=== PATIENT | female | born 1950 | race Caucasian/White ===

== ENCOUNTER 2023-08-14 08:17 | Observation (INO) ==
--- NOTE | 2023-07-20 13:03 | PAT Medication Instructions ---
Medication Instructions Date of Service July 20, 2023 Home Medications acetaminophen 500 mg capsule 1,000 mg PO Q6H PRN albuterol sulfate 90 mcg/actuation aerosol inhaler 2 inh inhalation QID PRN amoxicillin 500 mg capsule 2,000 mg PO UD PRN ascorbate calcium (vitamin C) 500 mg tablet 500 mg PO DAILY azelastine 137 mcg (0.1 %) nasal spray aerosol 2 spray intranasal BID calcium carbonate 500 mg-vitamin D3 10 mcg (400 unit) tablet (Calcium 500 + D) 1 tab PO DAILY cholecalciferol (vitamin D3) 25 mcg (1,000 unit) capsule (Vitamin D3) 25 mcg PO DAILY doxycycline monohydrate 50 mg capsule 50 mg PO QAM estradiol 10 mcg vaginal tablet 10 mcg vaginal Q7D fluticasone propionate 110 mcg/actuation HFA aerosol inhaler 1 puff inhalation BID fluticasone propionate 50 mcg/actuation nasal spray,suspension 1 - 2 spray intranasal DAILY ibuprofen 200 mg tablet 200 mg PO Q6H PRN metronidazole 0.75 % topical cream (MetroCream) 1 applic topical DAILY PRN omeprazole 20 mg tablet,delayed release 20 mg PO HS pravastatin 40 mg tablet 40 mg PO HS terconazole 0.8 % vaginal cream 1 appful vaginal HS PRN valacyclovir 500 mg tablet (Valtrex) 500 mg PO DAILY PRN Continue as directed amoxicillin 500 mg capsule 2,000 mg PO UD PRN(if needed) valacyclovir 500 mg tablet (Valtrex) 500 mg PO DAILY PRN(if needed) fluticasone propionate 50 mcg/actuation nasal spray,suspension 1 - 2 spray intranasal DAILY ASK your surgeon for instructions ibuprofen 200 mg tablet 200 mg PO Q6H PRN STOP taking 24 hours before surgery estradiol 10 mcg vaginal tablet 10 mcg vaginal Q7D metronidazole 0.75 % topical cream (MetroCream) 1 applic topical DAILY PRN terconazole 0.8 % vaginal cream 1 appful vaginal HS PRN DO NOT take the morning of surgery ascorbate calcium (vitamin C) 500 mg tablet 500 mg PO DAILY calcium carbonate 500 mg-vitamin D3 10 mcg (400 unit) tablet (Calcium 500 + D) 1 tab PO DAILY cholecalciferol (vitamin D3) 25 mcg (1,000 unit) capsule (Vitamin D3) 25 mcg PO DAILY Take morning of surgery With a small sip of water, OTHERWISE NOTHING TO EAT OR DRINK AFTER MIDNIGHT: acetaminophen 500 mg capsule 1,000 mg PO Q6H PRN(if needed) albuterol sulfate 90 mcg/actuation aerosol inhaler 2 inh inhalation QID PRN(use if needed; please bring with you to hospital day of surgery if possible) azelastine 137 mcg (0.1 %) nasal spray aerosol 2 spray intranasal BID doxycycline monohydrate 50 mg capsule 50 mg PO QAM fluticasone propionate 110 mcg/actuation HFA aerosol inhaler 1 puff inhalation BID Take evening before surgery acetaminophen 500 mg capsule 1,000 mg PO Q6H PRN(if needed) albuterol sulfate 90 mcg/actuation aerosol inhaler 2 inh inhalation QID PRN(if needed) azelastine 137 mcg (0.1 %) nasal spray aerosol 2 spray intranasal BID fluticasone propionate 110 mcg/actuation HFA aerosol inhaler 1 puff inhalation BID omeprazole 20 mg tablet,delayed release 20 mg PO HS pravastatin 40 mg tablet 40 mg PO HS Other Notes If you have any questions please call us at [phone] or [phone] or [phone] or [phone]
--- NOTE | 2023-07-23 11:10 | Anesthesiology Consultation ---
Date of Service July 23, 2023 Assessment & Plan (1) Encounter for pre-operative examination: - Infectious disease screening: Per assessment on 07/23/23: No known infectious disease contacts or current infectious disease symptoms. No noted recent Covid positive test result. - Outpatient joint assessment: Pt currently scheduled for inpatient pathway. If surgeon requests review for outpatient joint pathway, patient is an acceptable candidate for outpatient joint program from anesthesia standpoint pending surgeon's office assessment that patient is motivated, has good support and completes Same Day Joint Program preop requirements. - Right hip revision (07/26/15): SAB at L3-4 x1 attempt at [facility] Chart Review Chart Review: Acceptable Risk for Surgery and Patient seen in Pre Admission Testing Teaching & Discussion Pre-Anesthesia Teaching/Discussion Notes: Instructed NPO after midnight before surgery,except medications with 15 cc of water. Medication instructions provided according to the PAT guidelines. History Surgery Operation Date: 08/14/23 12:00 Proposed Procedures p Right Total Knee Arthroplasty - Attila Brunson, Height/Weight Height: 5 ft 6.5 in Weight: 77.4 kg Allergies Allergy/AdvReac Type Severity Reaction Status Date / Time rivaroxaban [From Xarelto] Allergy Itching Verified 07/23/23 11:45 morphine AdvReac Intermediate Nausea Verified 07/20/23 11:02 Medications Home Medications Medication Instructions Recorded Confirmed Last Taken acetaminophen 500 mg capsule 1,000 mg PO Q6H PRN Pain 07/20/23 07/20/23 Unknown albuterol sulfate 90 mcg/actuation 2 inh inhalation QID PRN Shortness 07/20/23 07/20/23 Unknown aerosol inhaler Of Breath amoxicillin 500 mg capsule 2,000 mg PO UD PRN dental 07/20/23 07/20/23 Unknown procedures ascorbate calcium (vitamin C) 500 500 mg PO DAILY 07/20/23 07/20/23 Unknown mg tablet azelastine 137 mcg (0.1 %) nasal 2 spray intranasal BID 07/20/23 07/20/23 Unknown spray aerosol calcium carbonate 500 mg-vitamin 1 tab PO DAILY 07/20/23 07/20/23 Unknown D3 10 mcg (400 unit) tablet (Calcium 500 + D) cholecalciferol (vitamin D3) 25 25 mcg PO DAILY 07/20/23 07/20/23 Unknown mcg (1,000 unit) capsule (Vitamin D3) doxycycline monohydrate 50 mg 50 mg PO QAM rosacea 07/20/23 07/20/23 Unknown capsule estradiol 10 mcg vaginal tablet 10 mcg vaginal Q7D 07/20/23 07/20/23 Unknown fluticasone propionate 110 1 puff inhalation BID 07/20/23 07/20/23 Unknown mcg/actuation HFA aerosol inhaler fluticasone propionate 50 1 - 2 spray intranasal DAILY 07/20/23 07/20/23 Unknown mcg/actuation nasal spray,suspension ibuprofen 200 mg tablet 200 mg PO Q6H PRN Pain 07/20/23 07/20/23 Unknown metronidazole 0.75 % topical cream 1 applic topical DAILY PRN rosacea 07/20/23 07/20/23 Unknown (MetroCream) omeprazole 20 mg tablet,delayed 20 mg PO HS 07/20/23 07/20/23 Unknown release pravastatin 40 mg tablet 40 mg PO HS 07/20/23 07/20/23 Unknown terconazole 0.8 % vaginal cream 1 appful vaginal HS PRN yeast 07/20/23 07/20/23 Unknown infections valacyclovir 500 mg tablet 500 mg PO DAILY PRN Cold Sores 07/20/23 07/20/23 U nknown (Valtrex) Past Medical History Medical History Allergic rhinitis Asthma GERD (gastroesophageal reflux disease) Hyperlipidemia Osteoarthritis Rosacea Exercise / Class Metabolic Activity II 4-5 Yardwork/Stairs/Walk up hill (one FS: no CP, no SOB) Past Surgical History Surgical History History of anesthesia reaction Memory changes following hip surgery 2004 Blood pressure "bottomed out" following spinal with previous surgery (~2012), no similar BP issues with subsequent surgeries/spinal anesthesia History of ankle surgery left ankle revision (2006) History of lumbar fusion 2013 History of revision of total hip arthroplasty Right hip revision (07/26/15): SAB at L3-4 x1 attempt at [facility] History of total left hip arthroplasty History of total right hip arthroplasty 2015 Hx of ankle fusion left (2004) Hx of colonoscopy Hx of laparoscopy (r/t abdominal pain) Hx of tonsillectomy 89 Hx of wisdom tooth extraction age 23 Past Anesthesia History No Family Hx of Anesthesia Complications and Other * Memory changes following hip surgery 2004 * Blood pressure "bottomed out" following spinal with previous surgery (~2012), no similar BP issues with subsequent surgeries/spinal anesthesia History of PONV No Hx of PONV and Hx of Motion Sickness (Vertigo- remote hx, no recent issues) Social History Smoking Status: Former smoker Do You Dip or Chew Tobacco: No Smoking End Date: Age [age] Hx Alcohol Use: Yes Alcohol type: wine alcohol intake frequency: holidays/special occasions only (1 glass/year) substance use type: marijuana (Only during college) Review of Systems Patient denies chest pain, shortness of breath, dyspnea on exertion, fever, chills, cough, wheezing, palpitations. Physical Exam Vital Signs VITALS BP 143/92 P 74 TEMP 98.1 SP02 99%RA RESP 18 PHYSICAL Full cervical extension range of motion. Full TMJ range of motion. TMD 3 finger breaths Mallampati Score 2 Dentition: intact, several crowns Lungs: clear throughout to auscultation Cardiac: regular rate and rhythm, no murmurs noted Spine: normal Carotid arteries: negative bruit Extremities: no LE edema Lab Results Anesthesia Preop Results Results Anesthesia Widget: WBC 5.70 K/ul (4.8-10.8) 07/23/23 Hgb 13.6 g/dl (12.0-16.0) 07/23/23 Hct 40.7 % (37.0-47.0) 07/23/23 Plt 182 K/uL (130-400) 07/23/23 PT 10.7 Seconds (9.0-12.0) 07/23/23 PTT 26 Seconds (21-31) 07/23/23 INR 1.0 (0.9-1.1) 07/23/23 Blood Type A Positive 07/23/23 Antibody Screen NEGATIVE 07/23/23 Testing Laboratory Results 06/24/23 SODIUM 141 POTASSIUM 4.2 CHLORIDE 103 CO2 28 BUN 17 CREATININE 0.9 GLUCOSE 105 HGBA1C 5.6% Electrocardiogram Date: 07/23/23 NSR at 70bpm. "Normal ECG" Chest X-Ray Date: 07/23/23 FINDINGS: PA and lateral chest radiographs are compared to study dated 07/09/2015. The heart is mildly top normal for projection noting atherosclerotic calcification of the thoracic aorta. There is minimal bibasilar atelectasis. The lungs and pleural spaces are otherwise clear. There is no pneumothorax. The skeletal structures are osteopenic. The bony thorax appears intact. IMPRESSION: No active disease in the chest.
--- NOTE | 2023-08-12 07:57 | History & Physical Report ---
Date of Service August 12, 2023 Assessment & Plan (1) Osteoarthritis of right knee: We will proceed with a right total knee arthroplasty. Postoperatively she will be started on aspirin for DVT prophylaxis and kept overnight in the hospital for postop medical management. She plans to use energy physical therapy upon discharge. History of Present Illness Chief Complaint: Osteoarthritis of the right knee. Primary Care Provider: Kathie Novak Hermelindo Myers is a pleasant 73-year-old female who has been dealing with chronic increasing right knee pain. It has been going on for years. She has received injections and therapy in the past by other providers. She is having an increasing deformity of the knee. X-rays and clinical examination been diagnostic for advanced osteoarthritis of the right knee. After failing conservative treatment, she has elected to proceed with a right total knee arthroplasty. Allergies Allergy/AdvReac Type Severity Reaction Status Date / Time rivaroxaban [From Xarelto] Allergy Itching Verified 07/23/23 11:45 morphine AdvReac Intermediate Nausea Verified 07/20/23 11:02 Home Medications Medication Instructions Recorded Confirmed Type acetaminophen 500 mg capsule 1,000 mg PO Q6H PRN Pain 07/20/23 07/20/23 History albuterol sulfate 90 mcg/actuation 2 inh inhalation QID PRN Shortness 07/20/23 07/20/23 History aerosol inhaler Of Breath amoxicillin 500 mg capsule 2,000 mg PO UD PRN dental 07/20/23 07/20/23 History procedures ascorbate calcium (vitamin C) 500 500 mg PO DAILY 07/20/23 07/20/23 History mg tablet azelastine 137 mcg (0.1 %) nasal 2 spray intranasal BID 07/20/23 07/20/23 History spray aerosol calcium carbonate 500 mg-vitamin 1 tab PO DAILY 07/20/23 07/20/23 History D3 10 mcg (400 unit) tablet (Calcium 500 + D) cholecalciferol (vitamin D3) 25 25 mcg PO DAILY 07/20/23 07/20/23 History mcg (1,000 unit) capsule (Vitamin D3) doxycycline monohydrate 50 mg 50 mg PO QAM rosacea 07/20/23 07/20/23 History capsule estradiol 10 mcg vaginal tablet 10 mcg vaginal Q7D 07/20/23 07/20/23 History fluticasone propionate 110 1 puff inhalation BID 07/20/23 07/20/23 History mcg/actuation HFA aerosol inhaler fluticasone propionate 50 1 - 2 spray intranasal DAILY 07/20/23 07/20/23 History mcg/actuation nasal spray,suspension ibuprofen 200 mg tablet 200 mg PO Q6H PRN Pain 07/20/23 07/20/23 History metronidazole 0.75 % topical cream 1 applic topical DAILY PRN rosacea 07/20/23 07/20/23 History (MetroCream) omeprazole 20 mg tablet,delayed 20 mg PO HS 07/20/23 07/20/23 History release pravastatin 40 mg tablet 40 mg PO HS 07/20/23 07/20/23 History terconazole 0.8 % vaginal cream 1 appful vaginal HS PRN yeast 07/20/23 07/20/23 History infections valacyclovir 500 mg tablet 500 mg PO DAILY PRN Cold Sores 07/20/23 07/20/23 History (Valtrex) Past Med/Surg History Medical History Osteoarthritis Allergic rhinitis Asthma Rosacea GERD (gastroesophageal reflux disease) Hyperlipidemia Surgical History History of anesthesia reaction Memory changes following hip surgery 2004 Blood pressure "bottomed out" following spinal with previous surgery (~2012), no similar BP issues with subsequent surgeries/spinal anesthesia History of revision of total hip arthroplasty Right hip revision (07/26/15): SAB at L3-4 x1 attempt at [facility] History of total right hip arthroplasty 2014 History of lumbar fusion 2013 History of total left hip arthroplasty History of ankle surgery left ankle revision (2006) Hx of ankle fusion left (2004) Hx of wisdom tooth extraction age 23 Hx of tonsillectomy 1956 Hx of laparoscopy (r/t abdominal pain) Hx of colonoscopy Social History Smoking Status: Former smoker Tobacco Type: Cigarettes Smoking End Date: Age [age]; Second Hand Exposure: No; Do You Dip or Chew Tobacco: No; Tobacco Cessation Education Requested by Patient: No Hx Alcohol Use: Yes Alcohol type: wine Preferred Language: Polish Communication Ability: Effective 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 Physical Exam On physical examination of the right knee, she has a slight valgus deformity. She has tenderness palpation of the distal lateral femoral condyle and over the lateral joint line.. Constitutional WD/WN, vitals as above Eyes PERRL, conjunctivae normal, anicteric sclerae ENMT external ear and nose normal, oropharynx normal Neck trachea midline, no thyromegaly Respiratory normal respiratory effort Cardiovascular RRR, no murmur, no edema Gastrointestinal (Abdomen) normal bowel sounds, soft, nontender, no hepatosplenomegaly Psychiatric A+Ox3, euthymic affect Results & Data Results & Data Laboratory Results . Diagnostic Findings X-rays of the right knee show advanced osteoarthritis with joint space narrowing, osteophyte formation, and [id number] articulation.. PG Care Time/CCT Total # of Minutes Spent Total Time Spent with Patient: Total time spent is greater than 50% in coordination of care (as documented) at patient's floor/unit and/or counseling patient: Coding Level of Care Code None Diagnoses Osteoarthritis of right knee M17.11
[~2023-08-14 08:17] MED LIST: BUPIVACAINE 0.5 % 5 MG/1 ML PF 10ML VIAL ONE; DEXAMETHASONE SOD INJ 4 MG/ML VIAL ONE; ROPIVACAINE 0.5% 5 MG/ML 30 ML VIAL ONE
[2023-08-14] MEDS: LR 500ML BOLUS, THEN 15ML/HR IV SCH (09:07)
[2023-08-14] MEDS: dexAMETHasone**PF** 10 MG/ML VIAL IV SCH (09:08)
[2023-08-14] MEDS: LR 60ML/HR IV SCH (09:08)
[2023-08-14] MEDS: GABAPENTIN 300 MG CAP PO SCH (09:09)
[2023-08-14] MEDS: ACETAMINOPHEN 500 MG TAB PO SCH ×2 (09:09→14:35)
[2023-08-14] MEDS: FAMOTIDINE 20 MG TAB PO SCH (09:09)
[2023-08-14] MEDS ORDERED: MIDAZOLAM HCL 1 MG/ML 2ML VIAL ONE (09:17)
[2023-08-14] MEDS ORDERED: ATROPINE SULFATE 0.1 MG/ML 10ML SYR IV PRN (09:38)
[2023-08-14] MEDS ORDERED: ePHEDrine sulfate 50 MG/ML AMP IV PRN (09:38)
[2023-08-14] MEDS ORDERED: HYDROmorphone INJ 1 MG/ML SYRINGE IV PRN (09:38)
[2023-08-14] MEDS ORDERED: PROMETHAZINE HCL 6.25 MG in SODIUM CHLORIDE 0.9% 50 ML IV PRN (09:38)
[2023-08-14] MEDS ORDERED: PROPOFOL IV EMULSION 10 MG/ML 20 ML VIAL IV ONE (10:09)
[2023-08-14] MEDS: TRANEXAMIC ACID 1,000 MG **IV Pre-op IV SCH (10:14)
[2023-08-14] MEDS: ceFAZolin 2000MG 2,000 MG/15 ML SYR IV SCH (10:29)
[2023-08-14] MEDS: ROPIV 0.5% 246mg, Ketorolac 30mg, EPINEPHrine 0.5mg in NSS INFIL SCH (10:58)
[2023-08-14] MEDS ORDERED: ePHEDrine sulfate 50 MG/5 ML SYR ONE (11:17)
[2023-08-14] MEDS: TRANEXAMIC ACID 1,000 MG **IV Intra-op IV SCH (11:25)
--- NOTE | 2023-08-14 11:32 | Operative Report ---
PG Post Operative Report Pre & Post Diagnosis Operation Date: 08/14/23 10:00 Pre-Op Diagnosis: DJD Knee Right Post-Op Diagnosis: DJD Knee Right I identified the patient and participated in the time-out.: Yes Procedure Operation Date: 08/14/23 10:00 Actual Procedures p Right Total Knee Arthroplasty(Right) - Attila Brunson DO Surgeon Attila Brunson DO Professor Of Religious Studies Attila Padron PA-C Estimated Blood Loss 30 Findings Consistent with Post-Op Diagnosis Specimens Right femoral and tibial bone Description of Procedure Implants used: I used a Natasha Persona total knee arthroplasty system with a size 8 standard PS femur, E tibia, 31 oval patella, and a size 12 CPS polyethylene bearing. All components were cemented in place with Biomet cement. Lucia arrived [facility] for the above procedure. She was seen in the preoperative holding area and the operative extremity was identified and signed. She was given a preoperative antibiotic, TXA, a spinal anesthetic and an adductor nerve block. She was taken back to the operating room and laid on the table in supine position. She was given basic sedation. The operative knee was then prepped and draped in sterile fashion. A timeout was done, and the patient and the operative extremity was properly identified. A midline incision was made directly over the patella. Dissection was taken down to the extensor mechanism. A medial parapatellar arthrotomy was used. The medial retinaculum was released and the fat pad was mostly excised. The knee was flexed and the ACL, PCL, and meniscus were removed. A drill was sent down the center of the femoral canal followed by an intramedullary latonia. Off that latonia a distal femoral cutting block was placed. 9 mm was resected off the distal femur at 5 of valgus. A posterior referencing AP sizing guide was then placed on the distal femur. The femur measured to be a size 8. 2 drill holes were placed in 3 of external rotation. A 4-in-1 cutting block was then impacted into place. Anterior, posterior, and chamfer cuts were then made. The proximal tibia was then exposed. An external tibial alignment guide was placed. A tibial cut guide was then anchored in place and the proximal tibia was then resected. The posterior aspect of the knee was then opened up and any additional meniscus fragments and osteophytes were removed. The tibia measured to be a size E. The tibial plate was then placed in the appropriate rotation and the tibia was drilled and punched. Trial components were then placed. I used a size 12 CPS polyethylene insert. The knee was brought through a full range of motion and felt to be stable. The peg holes for the femoral component were then drilled. The patella was then everted and 9 mm was resected off the posterior aspect of the patella. The patella measured to be a size 31 oval. 3 peg holes were then drilled. A trial patella was placed. The knee was once again brought through a full range of motion and felt to be stable. Trial components were then removed. The surrounding soft tissues were injected with 100 cc of an orthopedic pain control cocktail. All components were then cemented into place with Biomet cement. The final polyethylene insert was then snapped into place. Once cement was dry the tourniquet was deflated. Hemostasis was obtained. A dilute betadyne lavage was then done for 3 minutes. The joint was then irrigated with normal saline solution. The medial parapatellar arthrotomy was then closed with #1 Vicryl suture. The skin was closed with 2-0 Vicryl, 3-0V lock suture, and sobeida. A soft compressive dressing was placed. She was then transferred to a hospital bed and taken to the postanesthesia care unit in stable condition. She tolerated the procedure well. Nilesh Tejada PA-C, was present for the entire procedure. He was critical for patient positioning, prepping, draping, retraction exposure, wound closure and application of sterile dressing. I attest to the content of the Intraoperative Record and any orders documented therein. Any exceptions are noted below.
--- NOTE | 2023-08-14 12:52 | XRay Report ---
TWO VIEWS RIGHT KNEE CLINICAL HISTORY: Postoperative examination. FINDINGS: AP and crosstable lateral portable views of the right knee are obtained. A right knee arthr oplasty is in near anatomic alignment. There has been undersurface remodeling of the patella. No acut e fracture is seen. There are expected postoperative changes around the knee including skin clips, so ft tissue edema, and subcutaneous gas. IMPRESSION: Expected postoperative changes status post right knee arthroplasty. No acute fracture is seen. ACT 112: Negative or not required by law. Electronically signed by: Bharathi Frye M.D. 08/14/2023 12:50 PM
--- NOTE | 2023-08-14 13:19 | Anesthesiology Progress Note ---
Date of Service August 14, 2023 Anesthesia Post Procedure Vital Signs Vital Signs: Temp Pulse Pulse Resp BP Pulse Ox O2 Del Method 08/14/23 13:15 36.3 C L 77 16 152/83 H 100 Room Air 08/14/23 12:50 36.2 C L 80 17 125/79 100 Room Air 08/14/23 12:40 84 15 134/85 100 Room Air 08/14/23 12:30 86 12 136/79 100 Room Air 08/14/23 12:20 83 19 128/78 100 Oxymask 08/14/23 12:10 85 12 124/75 100 Oxymask 08/14/23 12:00 93 H 14 124/68 100 Oxymask 08/14/23 11:53 36.2 C L 99 H 20 112/65 100 Oxymask 08/14/23 08:57 37 C 80 20 157/94 H 99 Room Air O2 Flow Rate 08/14/23 13:15 08/14/23 12:50 08/14/23 12:40 08/14/23 12:30 08/14/23 12:20 1 08/14/23 12:10 3 08/14/23 12:00 5 08/14/23 11:53 10 08/14/23 08:57 Transfer of Care Handoff Completed per policy Notes Mental Status: alert / awake / arousable and participated in evaluation Nausea / Vomiting: adequately controlled Pain: adequately controlled Airway Patency, RR, SpO2: stable & adequate BP & HR: stable & adequate Hydration State: stable & adequate Neuraxial Anesthesia: was administered and sensory block is resolving Anesthetic Complications: no major complications apparent and Pt Satisfied with anesthetic care
[2023-08-14] MEDS ORDERED: ONDANSETRON INJ 2 MG/ML 2 ML VIAL IV PRN (13:21)
[2023-08-14] MEDS ORDERED: traMADol HCL 50 MG TABLET PO PRN (13:21)
[2023-08-14] MEDS ORDERED: MAGNESIUM HYDROXIDE SUSP 30 ML UDC PO PRN (13:21)
[2023-08-14] MEDS ORDERED: NALOXONE HCL 0.4 MG/1 ML VIAL/CARP IV PRN (13:21)
[2023-08-14] MEDS ORDERED: bisacodyL 10 MG SUPP PR PRN (13:21)
[2023-08-14] MEDS ORDERED: METOCLOPRAMIDE HCL INJ 5 MG/ML 2 ML VIAL IV PRN (13:21)
[2023-08-14] MEDS ORDERED: HYDROmorphone INJ 0.5 MG/0.5 ML SYR IV PRN (13:21)
[2023-08-14] MEDS: ORTHO JOINT ANESTHETIC ONE (13:23)
[2023-08-14] MEDS: SODIUM CHLORIDE 0.9% 1,000 ML IV SCH (13:24)
[2023-08-14] MEDS: KETOROLAC TROMETHAMINE 15 MG/ML VIAL IV SCH (14:35)
[2023-08-14] MEDS: oxyCODONE HCL IR 5 MG TAB (IMMEDIATE RELEASE) PO PRN (16:32)
[2023-08-14] MEDS: ceFAZolin 1000MG 1,000 MG/7.5 ML SYR IV SCH (17:54)
--- OUTSIDE RECORDS SUMMARY | 2023-08-14 18:07 | External Medical Summary | Summary of Care ---
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 Encounter Details Date Type Department Care Team (Late st Contact Info) Description 08/03/2023 2:30 PM EST Office Visit Gynecology/Obstetri [facility] [address] [place] [address] Radha Donald PA-C [address] [place] [address] Vaginal dryness, menopausal*; Herpes simplex infection of other site of genitourinary tract Allergies Active Allergy Reactions Criticality Noted Date Comments Morphine 09/11/2015 nausea Pollen Extract 09/18/2020 Rivaroxaban Itching 08/04/2018 documented as of this encounter (statuses as of 08/03/2023) Medications Medication Sig Dispensed Refills Start Date End Date Status SMITH C PO TABS two tablets daily 0 02/05/2005 Active VITAMIN D 1000 UNITS PO TABS 1 daily 0 Active TYLENOL EXTRA STRENGTH 500 MG PO TABS None Entered 0 Active amoxicillin (AMOXIL) 500 MG Capsule Take 4 Capsules by mouth as needed for Other. For dental procedures. 0 04/23/2017 Active Calcium Carb-Cholecalcifero l 500-400 MG-UNIT Oral Tablet ONE DAILY 0 07/27/2017 Active Terconazole 0.8 % vaginal cream Administer 1 Applicator into the vagina at bedtime. 1 Tube 6 12/31/2018 Active Additional Information Patient taking differently:1 Applicator Vaginal HS,USING NEEDED, Reported on 08/13/2022 metroNIDAZOLE 0.75 % External Cream (MetroCream) Apply thin layer to face twice 45 g 5 08/12/2021 Active Estradiol 10 MCG Vaginal Tablet (Yuvafem)Indication s:Vaginal dryness, menopausal Insert 1 tablet vaginally once every week 12 Tablet 4 08/14/2022 Active Fluticasone Propionate HFA 110 MCG/ACT Inhalation Aerosol (Flovent HFA) INHALE 1 PUFF BY MOUTH TWICE A DAY. RINSE MOUTH FOLLOWING USE 36 g 1 02/02/2023 Active Azelastine HCl 0.1 % Nasal Solution (Astelin) Administer 2 Sprays into nostril in the morning and 2 Sprays before bedtime. 90 mL 1 02/02/2023 Active Doxycycline Monohydrate 50 MG Oral CapsuleIndications: Rosacea TAKE 1 CAPSULE BY MOUTH DAILY. USE DIRECTED. 30 Capsule 5 04/07/2023 Active Fluticasone Propionate 50 MCG/ACT Nasal Suspension (Flonase)Indication s:Rhinitis, nonallergic ADMINISTER 1 TO 2 SPRAYS INTO EACH NOSTRIL DAILY 48 mL 3 06/09/2023 Active Pravastatin Sodium 40 MG Oral Tablet (Pravachol)Indicati ons:Dyslipidemia, goal LDL below 100 TAKE 1 TABLET WITH EVENING MEAL OR AT BEDTIME 90 Tablet 3 06/09/2023 Active Nystatin [id number] UNIT/ML Mouth/Throat Suspension PLEASE SEE ATTACHED FOR DETAILED DIRECTIONS 0 04/03/2023 Active Omeprazole 20 MG Oral Tablet Delayed Release Disintegrating Take by mouth. 0 Active Ibuprofen 200 MG Oral Tablet (Motrin) Take 1 Tablet by mouth every 4 hours as needed. 0 Active Albuterol Sulfate HFA 108 (90 Base) MCG/ACT Inhalation Aerosol SolutionIndications :Mild persistent asthma without complication Inhale 2 Puffs by mouth every 4 hours as needed for Cough, Shortness of Breath or Wheezing (And with respiratory infections). 18 g 0 06/22/2023 Active valACYclovir HCl 500 MG Oral Tablet (Valtrex)Indication s:Herpes simplex infection of other site of genitourinary tract TAKE 1 TABLET TWICE A DAY FOR 3 DAYS NEEDED FOR HERPES OUTBREAK 6 Tablet 5 08/03/2023 Active valACYclovir HCl 500 MG Oral Tablet (Valtrex)Indication s:Herpes simplex infection of other site of genitourinary tract TAKE 1 TABLET TWICE A DAY FOR 3 DAYS NEEDED FOR HERPES OUTBREAK 6 Tablet 5 07/31/2022 4 Discontinu ed(Refill) documented as of this encounter (statuses as of 08/03/2023) Active Problems Problem Noted Date Diagnosed Date Rhinitis, nonallergic 08/09/2018 History of tobacco use 09/25/2017 Mild persistent asthma without complication 07/09 MOE (stress urinary incontinence, female) 2015 Dyslipidemia, goal LDL below 100 01/30/2015 Overview: CV RISK 9% 2017 Vitamin D deficiency 02/11/2013 Rosacea 09/24/2010 ADVANCE DIRECTIVE INFORMATION 02/12/2005 Overview: No, Advance Directive brochure given to patient. documented as of this encounter (statuses as of 08/03/2023) Resolved Problems Problem Noted Date Diagnosed Date Resolved Date Encounter for examination fo r normal comparison and control in clinical research program 08/18/2018 01/09/2020 Overview: DO NOT DELETE [facility] DETECT Study: Project # [id number], [employer] Vat Tender: Saud Ray, PhD. SUMMARY: Goal: Establish test characteristics (sensitivity, specificity, PPV, NPV) of a circulating tumor DNA (ctDNA)-based test for cancer. Hypothesis: Circulating tumor DNA (ctDNA) and elevated protein biomarkers (together, the marker panel) can be detected in asymptomatic individuals with early cancer. Specific Aim 1: Determine the prevalence of a positive marker panel test in a prospective clinical cohort of 10,000 asymptomatic women ages 65 to 75 years. Specific Aim 2: Determine the sensitivity, specificity, positive predictive value (PPV) and negative predictive value (NPV) of a marker panel test to identify histologically proven cancers that develop within 5-years of the marker panel evaluation. CONTACTS: During normal business hours, contact study staff at ; after hours [employer] V[employer] Tender via the [facility] hospital variety lathe operator . Please contact study team before resolving/deleting from patients problem list. Study phone number: [phone]. Diagnosis changed due to Research Module. Go to Snapshot for study details. Encounter for examination fo r normal comparison and control in clinical research program 08/18/2018 02/06/2022 Overview: DO NOT DELETE - [facility] TONY Study: Project # [id number], [employer] Vat Tender: Osmar Garcia, MS, MPH. SUMMARY: Goal: Establish test characteristics (sensitivity, specificity, PPV, NPV) of a circulating tumor DNA (ctDNA)-based test for cancer. - Hypothesis: Circulating tumor DNA (ctDNA) and elevated protein biomarkers (together, the marker panel) can be detected in asymptomatic individuals with early cancer. - Specific Aim 1: Determine the prevalence of a positive marker panel test in a prospective clinical cohort of 10,000 asymptomatic women ages 65 to 75 years. - Specific Aim 2: Determine the sensitivity, specificity, positive predictive value (PPV) and negative predictive value (NPV) of a marker panel test to identify histologically proven cancers that develop within 5-years of the marker panel evaluation. - CONTACTS: During normal business hours, contact study staff at ; after hours [employer] Vat Tender via the [facility] hospital variety lathe operator . - Please contact study team before resolving/deleting from patients problem list. Study phone number: [phone]. Diagnosis changed due to Research Module. Go to Snapshot for study details. Encounter for examination fo r normal comparison and control in clinical research program 08/12/2018 11/15/2020 Overview: PERT (Performance of Epi proColon in Repeated Testing in the Intended Use Population) Epi proColon is an FDA approved blood test designed to detect Colon Cancer. The object of this study is to evaluate longitudinal performance of Epi proColon with respect to test positivity, longitudinal adherence to Epi proColon screening, adherence to follow-up colonoscopy and diagnostic yield, as well as assay failure rates. Contacts: PI: Dr. Sindhu Ellis CRC- Lara Schafer ([phone]) [facility]- Keiry Traore ([phone]) [facility] CRC- Renetta Quinteros ([phone]) Diagnosis changed due to Research Module. Go to Snapshot for study details. Allergic rhinitis 08/02/2018 08/09/2018 S/P hip replacement 11/03/2012 08/02/19 Overview: BILATERAL Mixed dyslipidemia 05/07/2011 5 Seborrheic dermatitis 09/24/20102017 Overview: ICD-10 update of inactive term GENERAL OSTEOARTHROSIS 04/03/200307/27 Other allergic rhinitis 12/12/200207/10 Overview: ICD-10 update of inactive term LOC PRIM OSTEOARTH-ANKLE 12/12/2002 documented as of this encounter (statuses as of 08/03/2023) Immunizations Name Administration Dates Next Due COVID-19 mRNA, LNP-s, No Pre serve, 2-Dose Series (Ringadoc) 03/02/2021,08/20/2020,07/16/2020 COVID-19, LNP-s, No Preserve , Dre-sucrose, Ages 12+ (Pfizer) 10/15/2021 COVID-19, MRNA-LNP, 23-24, P F, 30 MCG/0.3 mL, 12 YRS AND ABOVE, IM ([facility]) 03/31/2023 Covid-19, Mrna, Lnp-s, Pf, B ivalent, 30 Mcg, IM, 12 yrs and above (Ringadoc) 03/17/2022 Pneumococcal Conjugate Vacc, 13 Valent (Prevnar) 12/18/2016 Pneumococcal Polysaccharide PPV23 (Pneumovax) 07/27/2015 Seasonal Influenza, PF, 6 M & above, IM , (FluLaval or Fluzone) 04/22/2018,07/27/2017 Seasonal Influenza, Quadriva lent Hd (Fluzone Hd) 03/31/2023,03/31/2022,03/13/2021 Seasonal Influenza, Quadriva lent, No Preserve, IM 06/19/2016,03/09/2015 Seasonal Influenza, Split, I IV3, With Preserve, Inj 02/16/2014,03/10/2013,02/26/2012,03/12 Seasonal Influenza, Trivalen t, Adjuvanted, 65+ yrs 03/22/2020,01/31/2019 TDAP (age 10 and older)(Boostrix) 01/31/2019,03/2009 TDAP (age 11 and older)(Adacel) 11/15/2008 Varicella Zoster Vaccine (Adult) 12/25/2015 Zoster Vaccine Recombinant (Shingrix) 02/18/2020 ,08/17/2019 documented as of this encounter Social History Tobacco Use Types Packs/Day Years Used Date Smoking Tobacco: Former Cigarettes 0.5 16 0 06/08/1966 - 06/08/1982 Smokeless Tobacco: Never Alcohol Use Standard Drinks/Week Comments Yes 0.8 (1 standard drink = 0.6 oz p ure alcohol) Wine cooler once/month AUDIT-C Answer Date Recorded Q1: How often do you have a drink containing alc ohol? Monthly or less 06/17/2021 Q2: How many drinks containi ng alcohol do you have on a typical day when you are drinking? 1 or 2 06/17/2021 Q3: How often do you have si x or more drinks on one occasion? Never 06/17/2021 PHQ-2 Answer Date Recorded PHQ Adult Total Score 0 06/19/2022 Hunger Vital Sign Answer Date Recorded Within the past 12 months, y ou worried that your food would run out before you got the money to buy more. Never true 06/19/19 23 Within the past 12 months, t he food you bought just didn't last and you didn't have money to get more. Never true 06/19/2022 Sex and Gender Information Value Date Recorded Sex Assigned at Female 06/19/2022 1:09 PM EST Gender Identity Female 06/19/2022 1:09 PM EST Sexual Orientation Straight 06/19/2022 1: 09 PM EST Job Start Date Occupation Industry Not on file Not on file Not on file documented as of this encounter Last Filed Vital Signs Vital Sign Reading Time Taken Comments Blood Pressure 122/70 08/03/2023 2:27 PM EST Pulse - - Temperature 36.4 C (97.5 F) 08/03/2023 2:27 PM ES T Respiratory Rate - - Oxygen Saturation - - Inhaled Oxygen Concentration - - Weight 77.1 kg (170 lb) 08/03/2023 2:27 PM EST Height 166.4 cm (5' 5.5") 08/03/2023 2:27 PM EST Body Mass Index 27.86 08/03/2023 2:27 PM EST documented in this encounter Functional Status Functional Status Response Date of Assess ment Are you deaf or do you have serious difficulty h earing? No 12/19/2014 Are you blind or do you have serious difficulty seeing, even when wearing glasses? No 12/19/2014 Do you have difficulty dress ing or bathing? (5 years old or older) No 12/19/2014 Because of a physical, menta l, or emotional condition, do you have difficulty doing errands alone such as visiting a doctor s office or shopping? (15 years old or older) Yes 12/20/19 15 Cognitive Status Response Date of Assessm ent Because of a physical, menta l, or emotional condition, do you have serious difficulty concentrating, remembering, or making decisions? (5 years old or older) No 12/19/2014 documented as of this encounter Progress Notes * Radha Donald PA-C - 08/03/2023 2:38 PM EST Patient Name: Lucia Grissom CC: Med check (HPI): Lucia Grissom is a 73yo postmenopausal female who presents today for a medication check. She was seen on 07/31/22 for her annual exam, was restarted on Yuvafem once weekly. She is doing well with use, feels no itching or irritation. Denies any vaginal bleeding. Using Valtrex infrequently for HSV outbreaks, last used 2 weeks ago, does not refill on her prescription. She is up to date on mammogram screenings, has follow-up imaging in October. Denies breast changes or concerns. No changes to her health history. She is going for a knee replacement on 08/13 and is ready to have this completed. Past medical history: Past Medical History: Diagnosis Date Allergic rhinitis Chalazion RUL Dyslipidemia, goal LDL below 100 01/30/2015 CV RISK 9% 2017 Generalized osteoarthritis s/p fusion left AJ- 2005 Genital HSV History of tobacco use 09/25/2017 Intermittent asthma with reliever use up to twice per week without complication 07/27/2017 Other allergic rhinitis 12/12/2002 ICD-10 update of inactive term Rosacea 09/24/2010 S/P hip replacement 11/03/2012 BILATERAL Special screening for osteoporosis 2003 moderate bone loss, retest in 2006 MOE (stress urinary incontinence, female) 09/11/2015 Vertigo 2008 Vitamin D deficiency 02/11/2013 Past surgical history: Past Surgical History: Procedure Laterality Date COLONOSCOPY 07/16/2007 Normal. Repeat in 10 years. FOREARM/WRIST SURGERY NEC Left 09/2003 fracture repair September 19, 2003 FUSION OF FOOT BONES, TRIPLE 06/16/2006 Performed by ONEL HENRY at [facility] Log [id number] LAPAROSCOPY DIAGNOSTIC 06/08/1992 Laparoscopy LUMBAR SPINE FUSION, POST INTERBODY 02/10/2014 ARTHRODESIS SPINE POSTERIOR INTERBODY WITH LAMINECTOMY LUMBAR performed by Saud Barfield MD at [facility] LUMBAR SPINE FUSION, POSTEROLATERAL 02/10/2014 ARTHRODESIS SPINE POSTERIOR LUMBAR performed by Saud Barfield MD at [facility] MAMMOGRAM DIAGNOSTIC UNILATERAL 02/20/2009 Benign findings. Annual mammogram suggested. REMOVAL OF CHALAZION 12/29/2008 chalazion RUL REMOVAL OF CHALAZION 04/12/2009 chalazion RUL REMOVE LUMBAR SPINE LAMINA, 1 SEG 02/10/2014 LAMINECTOMY FACETECTOMY AND FORAMINOTOMY LUMBAR performed by Saud Barfield MD at OR [facility] REMOVE TONSILS & ADENOIDS, UNDER 12 06/08/1960 Tonsillectomy/Adenoids,<12 Y/O REVISION OF ANKLE JOINT Left 02/2004 Fusion left ankle Feb 2004 TOTAL HIP REPLACEMENT & PROSTHESIS 10/28/2012 LEFT TOTAL HIP REPLACEMENT & PROSTHESIS Right 08/02/2014 THR (Hip Total Replacement) US - BREAST(S) 02/20/2009 Benign findings. Obstetrical history: OB History Para Term AB Living 1 0 0 0 1 0 SAB IAB Ectopic Multiple Live Births 1 0 0 0 # Outcome Date GA Lbr Jacinto/2nd Weight Sex Delivery Anes PTL Lv 1 SAB Family history: Family History Problem Relation Age of Onset Coronary Artery disease Mother late onset CABG 80 Diabetes Mother Hypertension Mother Allergies Father hayfever Coronary Artery disease Father CABG 76 Bipolar Disorder Sister Other (SARCOIDOSIS) Sister affecting lung and heart Diabetes Sister Type I Skin cancer Brother Breast Cancer No significant family history Uterine cancer No significant family history Ovarian cancer No significant family history Colon cancer No significant family history Social history: Social History Tobacco Use Smoking status: Former Current packs/day: 0.00 Average packs/day: 0.5 packs/day for 16.0 years (8.0 ttl pk-yrs) Types: Cigarettes Start date: 06/08/1966 Quit date: 06/08/1982 Years since quittin.1 Smokeless tobacco: Never Substance Use Topics Alcohol use: Yes Alcohol/week: 0.8 standard drinks of alcohol Types: 1 5 oz of wine per week Comment: Wine cooler once/month Vaping/E-Cigarette Use Vaping/E-Cigarette Use Never User Vaping/E-Cigarette Substances Vaping/E-Cigarette Devices Allergy: Review of patient's allergies indicates: Allergen Reactions Morphine nausea Pollen Extract-Tree Extract [Pollen Extract] Xarelto [Rivaroxaban] Itching ROS: See HPI above LABS: PHYSICAL EXAMINATION Vital signs Filed Vitals: 08/03/23 1427 BP: 122/70 Temp: 36.4 C (97.5 F) Weight: 77.1 kg (170 lb) Height: 1.664 m (5' 5.5") Well developed. Well nourished white female in no acute distress Pelvic exam declined by patient A/P Vaginal dryness, menopausal (Primary) - Doing well with Yuvafem, desires to continue use. Herpes simplex infection of other site of genitourinary tract - valACYclovir HCl 500 MG Oral Tablet (Valtrex); TAKE 1 TABLET TWICE A DAY FOR 3 DAYS NEEDED FORHERPES OUTBREAK Follow Up: Return in about 1 year (around 08/03/2024) for annual exam. | For: annual exam Will f/u in 1 year for annual, sooner PRN. 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 Ana Maria Workman LPN 08/03/2023 2:29 PM documented in this encounter Plan of Treatment Upcoming Encounters Date Type Department Care Team (Late st Contact Info) Description 09/29/2023 1:30 PM EDT Office Visit Allergy/Immunology [employer] [address] [facility] [place], [place] [address] Andrew Everett MD [address] [facility] [place] [address] 10/15/2023 11:00 AM EDT Appointment [facility], [facility] [address] [facility] [place] [phone] 10/15/2023 11:30 AM EDT Appointment [facility], [facility] [address] [facility] [address] 12/28/2023 12:50 PM EDT Office Visit Dermatology, [place] [address] [place] [phone] Xenia Loredo PA-C [address] [place] [address] 06/23/2024 11:20 AM EST Office Visit Family [facility], [place] [address] [place] [address] [phone] Meagan Diaz PA-C [address] [place] [address] Health Maintenance Due Date Last Done Comments Colonoscopy 1995 Sigmoidoscopy 1995 Fecal Occult Blood Test 09/05/2014 09/05/2013, 02/18 Depression Screening 06/19/2023 06/19/2022 Mammogram 04/13/2024 04/13/2023, 03/09, 03/28/2022, Additional history exists Cologuard 07/07/2024 07/07/2021, 06/09, 06/27/2021 Colorectal Cancer Screening 07/07/2024 Lipid Panel 06/24/2028 06/24/2023, 06/08, 06/19/2021, Additional history exists DTaP,Tdap,and Td Vaccines (4 - Td or Tdap) 01/31/2029 01/31/2019, 11/15/2008, 11/15/2008 DXA Scan 02/26/2029 02/27/2020, 12/06, 12/18/2015, Additional history exists Pneumococcal Vaccine: 65+ Years Completed 12/18/2016, 07/27/2015 Zoster Vaccines Completed 02/18/2020, 08/06, 12/25/2015 COVID-19 Vaccine Completed 03/31/2023, 03/2022, 10/15/2021, Additional history exists Influenza Vaccine (FLU shot) Completed , 03/31/2022, 03/13/2021, Additional history exists GARDASIL-HPV IMMUNIZATION SERIES Aged Out No longer eligible based on patient's age to complete this topic Hepatitis B Aged Out No longer eligi ble based on patient's age to complete this topic MENINGOCOCCAL (MENACTRA/MENVEO) Aged Out No longer eligible based on patient's age to complete this topic documented as of this encounter Medical Devices Implanted Type 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 Printing Equipment Mechanic Apprentice Device Identifier Shelf Expiration Date Model / Serial / Lot Femoral Head F/F [id number] - [id number] Implanted:Qty : 1 on 06/16/2006 at [place] [facility] Left: Ankle MUSCULOSKELETAL TRANSPLANT FND [id number] / [id number] / Description:item code: 08992 0 Screw Ti Cannul 7.3mm 409.690 - [id number] Implanted:Qty : 1 on 06/16/2006 at [facility] Left: Ankle SYNTHES 409.690 / / Screw Cannul 7.3mm 209.875 - [id number] Implanted:Qty : 1 on 06/16/2006 at [facility] Left: Ankle SYNTHES 209.875 / / Screw Cannul 4.5mm 214.540 - [id number] Implanted:Qty : 1 on 06/16/2006 at [facility] Left: Ankle SYNTHES 214.540 / / Doron [place] 4.75mm Pbent 45mm - [id number] Implanted:Qty : 2 on 02/10/2014 at [place] [facility] N/A: Spine Lumbar MEDTRONIC : NEUROLOGIC PAIN [id number] / / Plate Cross 47mm-60mm Span - [id number] Implanted:Qty : 1 on 02/10/2014 at OR [facility] N/A: Spine Lumbar MED[employer] : NEUROLOGIC PAIN [id number] / / 14mm X 22mm X 12 Degree Interbody Cage Implanted:Qty : 1 on 02/10/2014 at OR [facility] N/A: Spine Lumbar Medtronic Neuro 12/24/2019 [id number] / / [id number] 14mm X 2mm X 12 Degree Interbody Cage Implanted:Qty : 1 on 02/10/2014 at OR [facility] N/A: Spine Lumbar Medtronic Neuro 12/01/2019 [id number] / / [id number] Screw 4.75mm [place] 6.5?40mm - [id number] Implanted:Qty : 3 on 02/10/2014 at OR [facility] N/A: Spine Lumbar [employer] : NEUROLOGIC PAIN [id number] / / Screw 4.75mm [place] 7.5?40mm - [id number] Implanted:Qty : 1 on 02/10/2014 at [place] [facility] N/A: Spine Lumbar [employer] : NEUROLOGIC PAIN [id number] / / Screw Bone Ti Set Solera 4.75m - [id number] Implanted:Qty : 4 on 02/10/2014 at OR [facility] N/A: Spine Lumbar Medtrol [id number] / / documented as of this encounter Visit Diagnoses Diagnosis Vaginal dryness, menopausal- Primary Symptomatic menopausal or female climacteric states Herpes simplex infection of other site of genitourinary tract documented in this encounter Advance Directives Latest Code Status on File Code Status Date Activated Date Inactivated Comments Full Code 12/19/2014 11:31 AM 12/19/2014 8:06 PM . Question Answer Comments Discussion of Advance Direct etelvina occurred with: Not Discussed Code Status History Code Status Date Activated Date Inactivated Comments Full Code 02/10/2014 9:28 AM 02/12/2014 7:15 PM This or shimon reflects the patients wishes and were consensually agreed upon. Question Answer Comments Discussion of Advance Directives occurred with: Patient Does the patient have a Living Will? No Does the patient have Health Care Power of Granulating Machine Operator? No
[2023-08-14] MEDS: ASPIRIN 81 MG ECTAB PO SCH (19:48)
[2023-08-14] MEDS: PRAVASTATIN SOD 40 MG TAB PO SCH (19:48)
[2023-08-14] MEDS: PANTOprazole 40 MG TAB PO SCH (19:49)
[2023-08-14] MEDS: DOCUSATE SODIUM 100 MG CAP PO SCH (19:49)
[2023-08-14] MEDS: SENNA 8.6 MG TAB PO SCH (19:49)
[2023-08-15] MEDS: MULTIVITAMIN TAB PO SCH (08:15)
[2023-08-15] MEDS: dexAMETHasone 4 MG TAB PO SCH (08:15)
--- NOTE | 2023-08-15 11:21 | Orthopedic Progress Note ---
Date of Service August 15, 2023 Assessment & Plan (1) Status post right knee replacement: Overall she is doing very well. She is not having much pain in the right knee. She will be seen by physical therapy today for ambulation and range of motion exercises. The nursing staff can change her dressing after physical therapy. She is on aspirin for DVT prophylaxis. She can be discharged home later today. She can follow-up with orthopedics in 2 weeks. Eboni Myers was seen and examined at bedside this morning. Overall she is doing very well. She is not having much pain in the right knee. She has been up and ambulating into the hallways. She is no complaints.. Review of Systems All systems reviewed & are unremarkable except as noted in HPI & below. Physical Exam On physical examination of the right knee, the dressing is clean and dry. Her leg is out full extension. She has active dorsiflexion plantarflexion of the right ankle.. Results & Data Results & Data Laboratory Results . Diagnostic Findings Postoperative x-rays of the right knee show the prosthesis to be in anatomic alignment without any evidence of fracture complication, or loosening.. PG Care Time/CCT Total # of Minutes Spent Total Time Spent with Patient: Total time spent is greater than 50% in coordination of care (as documented) at patient's floor/unit and/or counseling patient: Coding Level of Care Code 27307 Post Operative Follow-Up Diagnoses Status post right knee replacement Z96.651
--- NOTE | 2023-08-15 11:22 | Discharge Summary ---
Date of Service August 15, 2023 Admission HPI (Per Admitting) Lucia is a pleasant 73-year-old female who has been dealing with chronic increasing right knee pain. It has been going on for years. She has received injections and therapy in the past by other providers. She is having an increasing deformity of the knee. X-rays and clinical examination been diagnostic for advanced osteoarthritis of the right knee. After failing conservative treatment, she has elected to proceed with a right total knee arthroplasty. Admission Exam (Per Admitting) On physical examination of the right knee, she has a slight valgus deformity. She has tenderness palpation of the distal lateral femoral condyle and over the lateral joint line.. Principal Diagnosis Same as "Discharge Diagnosis" noted below under Discharge Instructions. Discharge Exam On physical examination of the right knee, the dressing is clean and dry. Her leg is out full extension. She has active dorsiflexion plantarflexion of the right ankle.. Discharge Data Procedures Performed Operation Date: 08/14/23 10:00 Actual Procedures p Right Total Knee Arthroplasty(Right) - Attila Brunson DO Ordered Studies 08/14/23 05:00 US - OR guided needle placemen Routine Hospital Course (1) Status post right knee replacement: On August 14, 2023 Lucia arrived at [facility] and underwent a right knee replacement without complication. She had a spinal anesthetic. Postoperatively she was started on aspirin for DVT prophylaxis and transferred to the general orthopedic floors. Her hospital course was uneventful. On postop day #1, her vital signs were stable and her pain was well-controlled. She was able to participate well with physical therapy doing ambulation and range of motion exercises. She was then discharged home. She will follow-up orthopedics in 2 weeks. PG Care Time/CCT Total # of Minutes Spent Total Time Spent with Patient: Total time spent is greater than 50% in coordination of care (as documented) at patient's floor/unit and/or counseling patient: Discharge Plan Discharge Items Patient Disposition: Home - Self-Care Reason For Visit: DJD Knee Right Discharge Diagnosis: Right knee replacement Activity: As commented below Non-emergency contact: Surgeon Call non-emergency contact if: your wound has increased redness and your wound has increased drainage Follow-up/Referrals: Kathie Casarez M.D. [Primary Care Provider] - Diet: Regular Addtl Attending Provider Instructions: Activity and Therapy Recommendations: * If you are using [facility] then therapy will be provided at your home until they feel you have accomplished all of your goals. * If you are using [facility] then Physical Therapy will be provided until they feel you are ready to start Outpatient Physical Therapy. * If you are not using home therapy then Outpatient Physical Therapy should start about 3-5 days from your day of surgery. Therapy will last about 6-10 weeks * It is important not to put a pillow under your knee when you are relaxing or sleeping. It is just as important to make sure you are getting your knee perfectly straight as it is to regain your knee bend. * You were shown a series of exercises in the hospital. Do these exercises three times each day including the exercises you were shown in physical therapy. * Get up and walk several times each day. For the first four weeks, try not to stand or walk for more than one hour at a time. If you do stand or walk for more than one hour, you will not hurt anything, but your leg will likely swell. * As you feel comfortable, you may change from the walker or crutches to a cane and then to independent walking. Medications: * Narcotic You will likely be sent home from the hospital with a prescription for the narcotic pain medication that worked best throughout your stay. * Cefadroxil -take the antibiotic twice a day for 10 days to help with infection. * Aspirin Most patients will be required to take Aspirin 81mg twice a day for 6 weeks after surgery. This is obtained [id number] and a prescription is not necessary. * Other medications may be prescribed for specific circumstances. If you have any questions, please call the office at . * Resume previous home medications unless otherwise instructed TEDs/Elastic Stockings: The white elastic stockings help limit swelling and prevent blood clots from forming in your legs.~ The more you wear them, the more they work. Wear them for six weeks. Dressing Care: The dressing can be changed after physical therapy on postop day #1. Daily dry dressing changes for a few days, especially if the incision is still draining some. If the incision is not draining then you may leave the sobeida open to air. If there is a little bit of drainage or if the sobeida are getting stuck on your clothing then cover the incision with a dry dressing. The sobeida will be removed at your 2 week follow-up appointment. Showering: You may shower 5 days from the day of surgery as long as the incision is no longer draining. You may shower with the sobeida exposed. Let soapy water run over the sobeida and pat them dry. Do not scrub or soak the incision. Things To Watch For: * Drainage from the incision site that occurs more than one week after your surgery. * Increased redness at the incision site. * Fever above 102 degrees Fahrenheit. * Unusual chest pain or shortness of breath. * Call [facility] at with any of the above problems Follow-Up Visit: Follow-up with Dr. Brunson's PA (Attila Padron) 2-3 weeks after your day of surgery . He will remove your sobeida and answer any questions. If you have any additional questions or concerns, Dr Brunson is usually in the office at the same time and will be available An appointment was probably scheduled when you signed-up for surgery in the office. If you have any questions call Office Instructions: More detailed instructions as well as Frequently Asked Questions were provided in a folder by our office when you signed-up for surgery. Please review these instructions when you get home. If you have any further questions or concerns, please feel free to call the office at [phone] Pending Studies at Discharge: No Stand-Alone Forms: My [facility], Smoking Cessation Medications and DC Order Prescriptions: New oxycodone 5 mg Tablet 5 mg PO Q4H PRN (Reason: pain) Qty: 30 0RF aspirin 81 mg Tablet,Delayed Release (Dr/Ec) 81 mg PO BID 42 Days Qty: 0 0RF cefadroxil 500 mg capsule 500 mg PO BID 10 Days Qty: 20 0RF Continued amoxicillin 500 mg Capsule 2,000 mg PO UD PRN (Reason: dental procedures) Rx Instructions: 1 hour prior to dental procedures pravastatin 40 mg Tablet 40 mg PO HS terconazole 0.8 % Cream 1 appful VAGINAL HS PRN (Reason: yeast infections) valacyclovir [Valtrex] 500 mg Tablet 500 mg PO DAILY PRN (Reason: Cold Sores) doxycycline monohydrate 50 mg capsule 50 mg PO QAM ascorbate calcium (vitamin C) 500 mg Tablet 500 mg PO DAILY metronidazole [MetroCream] 0.75 % Cream 1 applic TOPICAL DAILY PRN (Reason: rosacea) Patient Comments: mainly in hot weather ibuprofen 200 mg Tablet 200 mg PO Q6H PRN (Reason: Pain) azelastine 137 mcg (0.1 %) Aerosol,[place] 2 spray INTRANASAL BID Rx Instructions: administer into each nostril albuterol sulfate 90 mcg/actuation Hfa Aerosol Inhaler 2 inh INHALATION QID PRN (Reason: Shortness Of Breath) fluticasone propionate 50 mcg/actuation spray,suspension 1 - 2 spray INTRANASAL DAILY acetaminophen 500 mg Capsule 1,000 mg PO Q6H PRN (Reason: Pain) Patient Comments: takes 2 tablets nightly fluticasone propionate 110 mcg/actuation Hfa Aerosol Inhaler 1 puff INHALATION BID cholecalciferol (vitamin D3) [Vitamin D3] 25 mcg (1,000 unit) Capsule 25 mcg PO DAILY calcium carbonate-vitamin D3 [Calcium 500 + D] 500 mg-10 mcg (400 unit) Tablet 1 tab PO DAILY omeprazole 20 mg Tablet,Delayed Release (Dr/Ec) 20 mg PO HS estradiol 10 mcg Tablet 10 mcg VAGINAL Q7D Discharge Orders: Discharge Order (Routine); Ordered 08/15/23 Ordered By: Attila Brunson Admission Data Admit Date/Time: 08/14/23 12:01 Attending Provider: Attila Brunson Admit Provider: Attila Brunson Primary Care Provider: Kathie Casarez Other Interventions: Discharge Summary Assessment (RN) Last Done: 08/15/23 09:09
== END 2023-08-15 11:26 | disposition home or self-care (01) ==
LOC: ASU 08:17 → 3W 08:17